=== PATIENT | female | born 1965 | race Hispanic/Latino ===

== ENCOUNTER 2017-10-19 17:47 | Emergency (ER) | payer MEDICAID ==
[2017-10-19 17:55] VITALS: BP 145/85; PULSE 92; RESP 19; TEMP 97.8; O2SAT 95
--- NOTE | 2017-10-19 18:16 | C.PDOC ---
History Of Present Illness 52 yr old female presents to the ER with complaints of left ear pain for the past 2-3 weeks. Patient reports she went to her PMD and was prescribed a ointment but the pain persists. Patient also believes there is a insect in her ear, states she pulled half of it out yesterday. Patient denies fever, hearing loss, ear discharge, bleeding from ear, neck pain or headache. Time Seen by Provider: 10/19/17 18:00 Chief Complaint (Nursing): ENT Problem History Per: Patient History/Exam Limitations: None Onset/Duration Of Symptoms: Days (2-3 weeks) Current Symptoms Are (Timing): Still Present Quality (Ear): Foreign Body (Possible insect) Past Medical History Reviewed: Historical Data, Nursing Documentation, Vital Signs Vital Signs: Last Vital Signs Temp 97.8 F 10/19/17 17:54 Pulse 92 H 10/19/17 17:54 Resp 19 10/19/17 17:54 BP 145/85 10/19/17 17:54 Pulse Ox 95 10/19/17 19:47 - Medical History PMH: Asthma (MILD ), Hypercholesterolemia - [facility] Procedures ESOPHAGOGASTRODUODENOSCOPY [EGD] W/CLOSED BIOPSY (07/07/15) Family History: States: No Known Family Hx - Social History Hx Alcohol Use: No Hx Substance Use: No - Immunization History Hx Tetanus Toxoid Vaccination: No Hx Influenza Vaccination: No Hx Pneumococcal Vaccination: No Review Of Systems Except As Marked, All Systems Reviewed And Found Negative. Constitutional: Negative for: Fever ENT: Positive for: Ear Pain (Left ear). Negative for: Ear Discharge Musculoskeletal: Negative for: Neck Pain Neurological: Negative for: Headache Physical Exam - Physical Exam Appears: Non-toxic, No Acute Distress Skin: Warm, Dry, No Rash Head: Atraumatic, Normacephalic Eye(s): bilateral: Normal Inspection, PERRL, EOMI Ear(s): Left: Other (Brown FB visulized. No hearing loss. No discharge. No bleeding.), Right: Normal Oral Mucosa: Moist Throat: No Erythema, No Exudate Neck: Normal, Normal ROM, Supple Extremity: Normal ROM, No Swelling Neurological/Psych: Oriented x3, Normal Speech, Normal Cranial Nerves Gait: Steady ED Course And Treatment O2 Sat by Pulse Oximetry: 95 (RA) Pulse Ox Interpretation: Normal Medical Decision Making Medical Decision Making: Some of the foreign body was left in the canal. Patient was instructed to follow up with the ENT for the removal of the other portion. Disposition - Disposition Referrals: Tom Moore MD [Staff Provider] - Disposition: HOME/ ROUTINE Disposition Time: 18:57 Condition: GOOD Additional Instructions: Follow up with the ENT doctor within 1-2 days. 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 - Scribe Statement The provider has reviewed the documentation as recorded by the Scribe Julia Bob All medical record entries made by the Scribe were at my direction and personally dictated by me. I have reviewed the chart and agree that the record accurately reflects my personal performance of the history, physical exam, medical decision making, and the department course for this patient. I have also personally directed, reviewed, and agree with the discharge instructions and disposition. Procedures - FB Removal Ear Left Foreign Body Location: Ear Canal Left Foreign Body Suspected: Insect (and cerumen) If Insect Suspected: Ear Canal Instilled w/other (hydrogen peroxide) TM Intact Pre-Procedure: Yes Foreign Body Removed: Partial Removal Foreign Body Removal Technique: Irrigation, Curette TM Intact Post Procedure: Yes (No bleeding) Patient Tolorated Procedure: Well, No Complications Complications: None
== END 2017-10-19 19:01 | disposition home or self-care (01) ==
LOC: C.ER 17:47
DX: T16.2XXA Foreign body in left ear, initial encounter (principal); X58.XXXA Exposure to other specified factors, initial encounter; Y92.9 Unspecified place or not applicable